=== PATIENT | male | born 1965 | race Caucasian/White ===

== ENCOUNTER 2018-01-04 09:40 | Observation (INO) | payer MEDICARE, MEDICAID ==
[2018-01-04 11:01] LABS: #Eosinphils 0.1 thou/uL (0.0-0.7); #Lymphocytes 1.3 thou/uL (1.20-3.40); #Monocytes 0.9 thou/uL (0.11-0.59); #Neutrophils 6.5 thou/uL (1.40-6.50); %Basophils 0.6 % (0.0-1.0); %Eosinophils 0.9 % (0.0-10.0); %Lymphocytes 15.2 % (21.0-51.0); %Neutrophils 73.4 % (42.0-75.0); Mean Corpuscular HGB CONC 34.2 g/dL (32.0-36.0); Mean Corpuscular Hemoglobin 36.2 pg (27.0-31.0); Mean Platelet Volume 6.7 fL (7.4-10.4); Platelet Count 294 thou/uL (130-400); RBC Distribution Width 11.7 % (11.5-14.5); Red Blood Cell (RBC) Count 3.88 mill/uL (4.70-6.10); White Blood Cell (WBC) Count 8.8 thou/uL (4.8-10.8)
[2018-01-04 11:23] LABS: MDiff Complete? YES; Macrocytosis SLIGHT = 6-15 cells (100X) (0-5/hpf); PLT Morphology Comment Appears Adequate
[2018-01-04 11:39] LABS: ALT (SGPT) 15 U/L (8-55); AST (SGOT) 16 U/L (5-34); Albumin 4.1 g/dL (3.5-5.0); Alkaline Phosphatase 87 U/L (40-150); BUN (Urea Nitrogen) 15 mg/dL (8.4-25.7); Bilirubin, Total 0.4 mg/dL (0.2-1.2); Calc. Creatinine Clearance 0 mL/min (70-130); Calcium 9.8 mg/dL (7.8-10.44); Carbon Dioxide 23 mmol/L (22-29); Chloride 104 mmol/L (98-107); Estimated GFR-MDRD Greater than 90; Globulin 3.3 g/dL (2.4-3.5); Glucose 98 mg/dL (70-105); Potassium 3.9 mmol/L (3.5-5.1); Protein, Total 7.4 g/dL (6.0-8.3); Sodium 137 mmol/L (136-145)
--- NOTE | 2018-01-04 12:39 | CT ---
CT ABDOMEN AND PELVIS WITH CONTRAST: HISTORY: Rectal pain. History of perirenal abscess. COMPARISON: CT abdomen and pelvis from 2014. FINDINGS: There are some mild atelectatic changes in the left lung base versus scarring, similar to 2014. No p ericardial effusion. Normal proximal small bowel rotation. The liver, pancreas, spleen, and gallbladder are all unremarka ble. Adrenal glands unremarkable. The aortoiliac contour is nonaneurysmal. There is a large perirectal abscess which measures 4.6 x 1. 5 x 2.5 cm, similar to the 2014 size. This is predominantly posterior. No dilated loops of large or small bowel. No significant abnormality. No acute osseous abnormality. IMPRESSION: 1. Similar to 2014 perirectal abscess with size as above. 2. Focal area of hyperenhancement hepatic segment 8 is likely a hemangioma and has not increased in size from 2014. POS: TPC
[2018-01-04 12:47] LABS: Anion Gap 15 mmol/L (10-20)
[2018-01-04] MEDS ORDERED: Piperacillin/Tazobactam 4.5 GM VIAL ONE (12:58)
[2018-01-04] MEDS ORDERED: HYDROcodone/Acetaminophen 5/325 mg Tablet ONE (13:13)
[2018-01-04] MEDS ORDERED: ISOVUE-370 76%-LOCM 1 ML ONE (13:30)
[2018-01-04] MEDS ORDERED: Ondansetron ODT 4 MG TAB PO PRN (15:22)
[2018-01-04] MEDS ORDERED: Enoxaparin Sodium 40 MG/0.4 ML SYRINGE SC SCH (15:22)
[2018-01-04] MEDS ORDERED: Acetaminophen 500 MG TAB PO PRN (15:54)
[2018-01-04] MEDS ORDERED: HYDROcodone/Acetaminophen 7.5/325 mg Tablet PO PRN (16:28)
[2018-01-04] MEDS ORDERED: Acetaminophen 325 MG TAB PO PRN (16:29)
[2018-01-04 16:32] VITALS: BMI 17.9
[2018-01-04 16:34] VITALS: TEMP 97.9
--- NOTE | 2018-01-04 16:39 | PDOC.FPRHP ---
- History of Present Illness Chief Complaint: perirectal abscess History of Present Illness: Patient is a 52YO gentleman w/ a PMH significant for HIV on atripla therapy, HTN, and a h/o recurrent hemorrhoids and perirectal abscesses who presents with CC of a perirectal abscess that started to form about 2 days ago. The patient states that he felt he was ahaving a flare-up with his hemorrhoids about 2 weeks ago and started using topical preparation H which helped the hemorrhoids subside; however, about 2 days ago he began to have pain in his perirectal area reminiscent of a peritrectal abscess. He says the pain is constant and fluctuates with position change and movement, namely walking. Denies any discharge, fever/chills, decreased PO intake, N/V, diarrhea, or BRBPR. States his last BM was yesterday morning and says it was very painful but he did not note any melena or hematochezia. Patient stated that the pain was tolerable yesterday with some topical OTC numbing cream but this morning he was barely able to walk 2/2 the pain. Says he tried taking a sitz bath to open of the abscess and encourage drainage but it did not help. After the bath did not help the patient therefore decided to come to the ED to be evaluated. ED Course: Patient was given 1 dose of PO [place] and IV Vanc and Zosyn. - Allergies/Adverse Reactions Allergies Allergy/AdvReac Type Severity Reaction Status Date / Time amphotericin B Allergy Verified 01/04/18 16:36 flucytosine Allergy Verified 01/04/18 16:36 venom-honey bee Allergy Verified 01/04/18 16:36 [bee venom (honey bee)] - Home Medications Medication Instructions Recorded Confirmed Type Cholecalciferol (Vitamin D3) 2,000 unit PO DAILY 08/14/13 01/04/18 History [Vitamin D3] Efavirenz/Emtricitab/Tenofovir 1 each PO DAILY 08/14/13 01/04/18 History [Atripla] Hydrochlorothiazide 25 mg PO QAM 08/14/13 01/04/18 History Potassium Chloride [K-Dur] 20 meq PO DAILY 08/14/13 01/04/18 History Atorvastatin Calcium 20 mg PO DAILY 11/10/13 01/04/18 History Acetaminophen [Tylenol Regular 650 mg PO Q6H PRN tab 01/04/18 Rx Strength] Amoxicillin/Potassium Clav 500 mg PO Q12HR 7 Days #14 tab 01/04/18 Rx [Augmentin] Docusate Sodium [Sof-Lax] 100 mg PO DAILY PRN #7 capsule 01/04/18 Rx - History PMHx: HIV, h/o recurrent hemorrhoids and perirectal abscesses, HTN, HLD, COPD PSHx: I&D of perianal abscess in August of 2103, Excision of perianal warts w/ seton placed through fistula in Nov, recurrent excision w/ tightening of seton through fistula in Dec FHx: Non-contributory Social: Has smoked about 2ppd since age 10 (~40 year history) up until 8 months ago when he cut back to 1.5 ppd. Drinks socially. No drug use. Lives at home with mom in [place], [place]. - Review of Systems General: denies: fever/chills, weight/appetite/sleep changes, fatigue Eyes: denies: vision changes ENT: denies: nasal congestion Respiratory: denies: cough, congestion, shortness of breath Cardiovascular: denies: chest pain Gastrointestinal: denies: nausea, vomiting, diarrhea, constipation, abdominal pain, GI bleeding Genitourinary: denies: incontinence, dysuria Skin: denies: itching Musculoskeletal: denies: swelling Neurological: denies: syncope, weakness Psychological: denies: anxiety, depression - Vital signs BP: 124/86 HR: 83 RR: 18 Tmax: 98.3F Pox: 98% on RA Wt: 60 kg - Physical Exam Constitutional: NAD, awake, alert and oriented, other (slightly underweight) HEENT: normocephalic and atraumatic, PERRLA, conjunctiva clear, no scleral icterus, grossly normal vision, grossly normal hearing, MMM, oropharynx clear Neck: supple, FROM, trachea midline Chest: no-tender to palpation Heart: RRR, normal S1/S2 Lungs: CTAB, no respiratory distress, good air movement, no rales/rhonchi, no wheezing Abdomen: soft, non-tender, bowel sounds present, no masses/distention Musculoskeletal: normal structure, normal tone, ROM grossly normal Neurological: no focal deficit, CN II-XII intact Skin: no rash/lesions, good turgor, capillary refill <2 seconds, no jaundice -Skin: external hemorrhoids diffusely w/ no evidence of acute or active thrombosis; perirectal area of induration @ ~10 o'clock about 4x2cm in size w/ no significant flutuance & minimal erythema noted; slightly TTP Heme/Lymphatic: no unusual bruising or bleeding Psychiatric: normal mood and affect, good judgment and insight, intact recent and remote memory FMR H&P: Results - Labs Result Diagrams: 01/04/18 10:42 01/04/18 10:42 Lab results: WBC 8.8 thou/uL (4.8-10.8) 01/04/18 10:42 Hgb 14.0 g/dL (14.0-18.0) 01/04/18 10:42 Hct 41.1 % (42.0-52.0) L 01/04/18 10:42 MCV 106.0 fL (78.0-98.0) H 01/04/18 10:42 Plt Count 294 thou/uL (130-400) 01/04/18 10:42 Neutrophils % 73.4 % (42.0-75.0) 01/04/18 10:42 Sodium 137 mmol/L (136-145) 01/04/18 10:42 Potassium 3.9 mmol/L (3.5-5.1) 01/04/18 10:42 Chloride 104 mmol/L (98-107) 01/04/18 10:42 Carbon Dioxide 23 mmol/L (22-29) 01/04/18 10:42 BUN 15 mg/dL (8.4-25.7) 01/04/18 10:42 Creatinine 0.78 mg/dL (0.6-1.3) 01/04/18 10:42 Glucose 98 mg/dL (70-105) 01/04/18 10:42 Lactic Acid 0.7 mmol/L (0.5-2.2) 01/04/18 10:42 Calcium 9.8 mg/dL (7.8-10.44) 01/04/18 10:42 Total Bilirubin 0.4 mg/dL (0.2-1.2) 01/04/18 10:42 AST 16 U/L (5-34) 01/04/18 10:42 ALT 15 U/L (8-55) 01/04/18 10:42 Alkaline Phosphatase 87 U/L (40-150) 01/04/18 10:42 Serum Total Protein 7.4 g/dL (6.0-8.3) 01/04/18 10:42 Albumin 4.1 g/dL (3.5-5.0) 01/04/18 10:42 - Radiology Interpretation Other Status: report reviewed by me Additional comment: CT Abd/pelvis significant for 4.6x1.5x2.5 cm perirectal abscess similar in size to abscess seen in 2014. FMR H&P: A/P - Problem List (1) Perirectal abscess Status: Acute Code(s): K61.1 - RECTAL ABSCESS (2) HIV (human immunodeficiency virus infection) Status: Chronic (3) HTN (hypertension) Status: Chronic Code(s): I10 - ESSENTIAL (PRIMARY) HYPERTENSION (4) HLD (hyperlipidemia) Status: Chronic Code(s): E78.5 - HYPERLIPIDEMIA, UNSPECIFIED (5) COPD (chronic obstructive pulmonary disease) Status: Chronic (6) History of HPV infection Status: Chronic Code(s): Z86.19 - PERSONAL HISTORY OF OTHER INFECTIOUS AND PARASITIC DISEASES (7) Hemorrhoids, external without complications Status: Chronic Code(s): K64.4 - RESIDUAL HEMORRHOIDAL SKIN TAGS - Plan 52YOM w/ PMH significant for HIV & recurrent perirectal abscesses who presents w / a CC of a perirectal abscess x 2 days. Perirectal abscess - General surgery, Dr. Puga consulted from the ED. Plans to de bedside I&D later today. Appreciate recs. - Will continue IV BS Abx w/ vanc & zosyn given patient's IC state w/ HIV. Can likely transition to PO Abx tomorrow. - Will continue home dose of norco as well as tylenol PO for pain control. Will have IV morphine available overnight due to plans for I&D today. - Will continue to follow WBC w/ AM CBC. - Will start a bowel regimen tomorrow to prevent BMs from being exceptionally painful. HIV - Per patient last CD4 count was 800. Follows w/ ID. - Will resume home Atripla therapy. HTN - Aware, well controlled. - Will resume home meds. HLD - Aware, will resume home meds. h/o hemorrhoids - Aware, no hemorrhoids actively thrombosed on exam. - Will resume preparation H PRN. COPD - Aware, patient uses a PRN inhaler. - Will order PRN albuterol. Tobacco use - Will encourage tobacco cessation. - Nicotine patch ordered. Dispo: Potentially d/c later tonight s/p I&D per General Surgery's recs. IVFs: None DVT PPX: Lovenox (held for I&D) FMR H&P: Upper Level - Pertinent history Sunbury Jacob is a 52 year old male with a history of HIV on ART and a history of multiple perirectal abscesses who presents to the ED with 2 week history of worsening perirectal pain. He denies any fever or chills. - Pertinent findings Vitals: AVSS Physical Exam: General: Alert and oriented x 3 Heart: Regular rate and rhythm Lungs: clear to auscultation bilaterally. Extremities: soft, non-tender. no edema. - Plan Date/Time: 01/04/18 1633 I, Kena Evans, have evaluated this patient and agree with findings/plan as outlined by validation intern resident. Pertinent changes/additions are listed here. Perirectal abscess. - Dr. Puga consulted from ED and plans to perform bedside I&D. - Will likely discharge after procedure. - Home with PO antibiotics. HIV - Pt states that his last CD4 count was 800 - on Atripla. Attending Addendum - Attending Addendum Date/Time: 01/04/18 3044 I personally evaluated the patient and discussed the management with Dr. Figueroa I agree with the History, Examination, Assessment and Plan documented above with any addition or exceptions noted below- 52 yo male with h/o HIV, HTN, hemorrhoids and preirectal abscess requiring I&D who presented c/o perianal pain x 2 days. Patient attempted sitz baths but pain increased today and so presented to ER. Denies any fever/chills, N/V. PMH/PSH/All/Meds reviewed and agree with residents documentation. Afebrile VSS Exam repeated by me and agree with residents findings. A/P: 1) Perirectal abscess- pTient started on Vanc and zosyn. Surgery consulted and plan for bedside I&D given patients lack of systemic symptoms with plan to d/c home after I&D.
[2018-01-04] MEDS ORDERED: Lidocaine 1% w/Epinephrine 1:100K 20 ML VIAL ONE (16:56)
[2018-01-04] MEDS ORDERED: Nicotine 14 MG PATCH TD SCH (17:00)
[2018-01-04 19:03] VITALS: BP 119/77
[2018-01-04] MEDS ORDERED: Piperacillin/Tazobactam 3.375 GM in Sodium Chloride 0.9% 100 ML IVPB SCH (20:00)
--- NOTE | 2018-01-04 21:18 | PDOC.GSCN ---
Surgery Consult: HPI - Consult details Date: 01/04/18 Time: 17:00 Reason for consult: other History of present illness: 01/04/18 21:14 Patient known to me from previous admissions. He had a fairly complex perirectal abscess with development of a fistula in ano which required surgical treatment about 3 years ago but healed completely from that. He has past medical history significant for HIV which is well-controlled on medication. About one week ago he started to develop recurrent perianal pain and swelling which he attributed to hemorrhoids and was treating topically, but a couple days ago the pain became severe. He came to the emergency room today and was found to have a large perirectal abscess which has not yet come to a head. He denies any fevers or chills but has been constipated since he is having so much pain in the anal area is difficult for him to empty his bowels. He has no other history of GI complaints except for occasional diarrhea and states that he had a colonoscopy at the time of his previous illness which didn't show any abnormalities. No personal or family history of inflammatory bowel disease or GI malignancy. 01/04/18 21:25 Surgery Consult: ROS - Review of Systems Constitutional: reports: as per HPI. denies: anorexia, chills, daytime sleepiness, excessive sweating, fatigue, fever(s), frequent falls, headache(s), increased appetite, lethargy, malaise, night sweats, stops breathing during sleep, snoring, weakness, weight gain, weight loss, other HEENT: denies: Head Aches, Visual Changes, Eye Pain, Ear Pain, Dysphasia, Sinus Congestion, Post Nasal Drip, Sore Throat, Other Cardiovascular: denies: regular rate and rhythm, irregular rate, no murmur, other Respiratory: reports: as per HPI. denies: chest congestion, cough, dyspnea, hemoptysis, dyspnea on exertion, wheezing, snoring, stridor, pain on inspiration , excessive phlegm production, change in phlegm color, pain with cough, other Gastrointestinal: reports: as per HPI, change in bowel habits, constipation, diarrhea. denies: abdominal pain, belching, bloating, coffee ground emesis, cramping, change in stool character, dyspepsia, dysphagia, excessive flatus, early satiety, fecal incontinence, heartburn, hematemesis, hematochezia, loose stool, melena, nausea, odynophagia, tenesmus, vomiting, other Musculoskeletal: reports: as per HPI. denies: abnormal gait, arthralgias, atrophy, back pain, defomity, joint swelling, loss of height, limited range of motion, muscle cramps, muscle weakness, myalgias, neck pain, numbness, radiating pain into limb, stiffness, tingling, other Integumentary: reports: as per HPI. denies: acne, alopecia, bleeding lesions, change in hair, changing lesions, change in nails, change in pigmentation, dry skin, erythema, furuncle, lesions, non-healing lesions, new lesions, photosensitivity, pruritus, rash, sores, skin pain, striae, skin ulcer, swelling , unusual bruising, wounds, jaundice, other Neurologial: reports: as per HPI. denies: abnormal gait, abnormal hearing, abnormal movements, abnormal speech, behavioral changes, confusion, convulsions , dizziness, disequilibrium, frequent falls, focal weakness, headache(s), lack of coordination, loss of vision, memory loss, numbness, paresthesias, restless legs, radicular pain, sensory deficit, syncope, tingling, tremor(s), vertigo, weakness, other visual disturbances, other Psychiatric: reports: as per HPI. denies: auditory halluncinations, anhedonia, anxiety, abnormal sleep pattern, behavioral changes, change in appetite, change in libido, confusion, difficulty concentrating, depression, hallucinations, homicidal ideation, hopelessness, irritability, mood swings, paranoia, panic attacks, suicidal ideation, visual hallucinations, tactile, other Surgery Consult: [facility] Past Medical History: HIV which is well-controlled, hypertension, hyperlipidemia Past Surgical History: I&D of perirectal abscess and surgery for anal fistula - Past Social History Smoking Status: Current every day smoker, Smokes 11 or more cig/day Drug Use History: none Living Situation: independent Surgery Consult: Exam - Vital signs Vital signs: Vital Signs - Most Recent Temp Pulse Resp BP Pulse Ox 97.9 F 96 16 119/77 98 01/04/18 19:02 01/04/18 19:02 01/04/18 19:02 01/04/18 19:02 01/04/18 19:02 - Physical Exam General: no distress Eye: normal ocular movement, PERRL ENT: no congestion, no hearing loss, normal mucosa, normal nares, normal pinna Neck: no bruits, no lymphadectomy, no masses, no darren distention, trachea midline Respiratory: normal expansion, normal respiratory effort, other (Occasional wheezes and crackles in the base) Abdomen: soft, tender Hernia: none Genitourinary (Male): normal penis with no external lesions, testicles non- tender, testicles present Rectum: other (Exquisitely tender with subtle swelling and induration of the posterior perianal area. No cal fluctuance) Hemorrhoids: mild Neurologic: normal coordination, normal sensation Musculoskeletal: normal gait, normal posture Psychiatric: memory intact, oriented to time, oriented to person, oriented to place, speech is normal Surgery Consult: Meds - Medications MAR Reviewed: Yes - Allergies Allergies/Adverse Reactions: Allergies Allergy/AdvReac Type Severity Reaction Status Date / Time amphotericin B Allergy Verified 01/04/18 16:36 flucytosine Allergy Verified 01/04/18 16:36 venom-honey bee Allergy Verified 01/04/18 16:36 [bee venom (honey bee)] Surgery Consult: Results - Labs Result Diagrams: 01/04/18 10:42 01/04/18 10:42 Lab results: Laboratory Results WBC 8.8 thou/uL (4.8-10.8) 01/04/18 10:42 RBC 3.88 mill/uL (4.70-6.10) L 01/04/18 10:42 Hgb 14.0 g/dL (14.0-18.0) 01/04/18 10:42 Hct 41.1 % (42.0-52.0) L 01/04/18 10:42 MCV 106.0 fL (78.0-98.0) H 01/04/18 10:42 MCH 36.2 pg (27.0-31.0) H 01/04/18 10:42 MCHC 34.2 g/dL (32.0-36.0) 01/04/18 10:42 RDW 11.7 % (11.5-14.5) 01/04/18 10:42 Plt Count 294 thou/uL (130-400) 01/04/18 10:42 MPV 6.7 fL (7.4-10.4) L 01/04/18 10:42 Neutrophils % 73.4 % (42.0-75.0) 01/04/18 10:42 Neutrophils % (Manual) Not Reportable 01/04/18 10:42 Lymphocytes % 15.2 % (21.0-51.0) L 01/04/18 10:42 Monocytes % 10.0 % (0.0-10.0) 01/04/18 10:42 Eosinophils % 0.9 % (0.0-10.0) 01/04/18 10:42 Basophils % 0.6 % (0.0-1.0) 01/04/18 10:42 Neutrophils # 6.5 thou/uL (1.40-6.50) 01/04/18 10:42 Lymphocytes # 1.3 thou/uL (1.20-3.40) 01/04/18 10:42 Monocytes # 0.9 thou/uL (0.11-0.59) H 01/04/18 10:42 Eosinophils # 0.1 thou/uL (0.0-0.7) 01/04/18 10:42 Basophils # 0.0 thou/uL (0.0-0.2) 01/04/18 10:42 Plt Morphology Comment Appears Adequate 01/04/18 10:42 Macrocytosis SLIGHT = 6-15 cells (100X) (0-5/hpf) 01/04/18 10:42 Sodium 137 mmol/L (136-145) 01/04/18 10:42 Potassium 3.9 mmol/L (3.5-5.1) 01/04/18 10:42 Chloride 104 mmol/L (98-107) 01/04/18 10:42 Carbon Dioxide 23 mmol/L (22-29) 01/04/18 10:42 Anion Gap 15 mmol/L (10-20) 01/04/18 10:42 BUN 15 mg/dL (8.4-25.7) 01/04/18 10:42 Creatinine 0.78 mg/dL (0.6-1.3) 01/04/18 10:42 Estimated GFR (MDRD) Greater than 90 01/04/18 10:42 Glucose 98 mg/dL (70-105) 01/04/18 10:42 Lactic Acid 0.7 mmol/L (0.5-2.2) 01/04/18 10:42 Calcium 9.8 mg/dL (7.8-10.44) 01/04/18 10:42 Total Bilirubin 0.4 mg/dL (0.2-1.2) 01/04/18 10:42 AST 16 U/L (5-34) 01/04/18 10:42 ALT 15 U/L (8-55) 01/04/18 10:42 Alkaline Phosphatase 87 U/L (40-150) 01/04/18 10:42 Serum Total Protein 7.4 g/dL (6.0-8.3) 01/04/18 10:42 Albumin 4.1 g/dL (3.5-5.0) 01/04/18 10:42 Globulin 3.3 g/dL (2.4-3.5) 01/04/18 10:42 Albumin/Globulin Ratio 1.2 g/dL (1.2-2.2) 01/04/18 10:42 Blood Type A POSITIVE 01/04/18 10:42 Antibody Screen NEGATIVE 01/04/18 10:42 - Radiology Interpretation Other Status: image reviewed by me (CT shows large posterior perirectal abscess), report reviewed by me Surgery Consult: A/P - Problem (1) Perirectal abscess Code(s): K61.1 - RECTAL ABSCESS Status: Acute - Plan Plan: Patient has an acute perirectal abscess which is very symptomatic. I recommended I&D at the bedside and he was agreeable to this plan. This was performed as documented with drainage of a large amount of pus. Cultures were sent. Patient tolerated the procedure well with immediate relief of his perianal pain. He should perform sitz baths or showers twice a day and after each bowel movement and return to my clinic in one week's time for drain removal. He is to contact me immediately. Develops worsening pain swelling redness fevers or chills.
--- NOTE | 2018-01-05 01:44 | OP ---
DATE OF PROCEDURE: 01/04/2018 PROCEDURE: Incision and drainage of perirectal abscess. PREOPERATIVE DIAGNOSIS: Perirectal abscess. POSTOPERATIVE DIAGNOSIS: Perirectal abscess. HISTORY: Mr. James is a 52-year-old man with a history of perirectal abscesses who presents with recurrence in the posterior position and incision and drainage was recommended. PROCEDURE IN DETAIL: After informed consent was obtained and appropriate antibiotics continued, the patient was placed in the left lateral decubitus position and the perianal area was prepped and drape d in standard sterile fashion. Local anesthesia was infused to the point of greatest tenderness post eriorly and an incision made. Dissection was carried down to the very-thick abscess capsule. The ab scess was aspirated to confirm that the incision was correctly positioned and pus was sent for Gram-s tain and culture. The abscess capsule was then sharply opened and a very large amount of pus obtaine d. This was completely evacuated. Quarter-inch [place] drain placed into the abscess cavity, which was about 4.5 cm deep. This was secured to the skin with nylon sutures and the cavity was irrigated with saline. The patient had immediate relief of the perianal pain and pressure after drainage of th e abscess. Gauze dressings were placed. Estimated blood loss was minimal. There were no complicati ons. SPECIMEN: Pus for Gram stain and culture.
[2018-01-05] MEDS ORDERED: Vancomycin HCl 1 GM in Premix Bag 1 BAG IVPB SCH (02:00)
[2018-01-05] MEDS ORDERED: Hydrochlorothiazide 25 MG TAB PO SCH (09:00)
[2018-01-05] MEDS ORDERED: Atorvastatin Calcium 20 MG TAB PO SCH (09:00)
[2018-01-05] MEDS ORDERED: Potassium Chloride 20 MEQ TAB PO SCH (09:00)
[2018-01-05] MEDS ORDERED: Efavirenz/Emtricitab/Tenofovir [Atripla] PO SCH (09:00)
--- NOTE | 2018-01-09 00:29 | DIS-2 ---
DATE OF ADMISSION: 01/04/2018 DATE OF DISCHARGE: 01/04/2018 RESIDENT: Zonia Figueroa M.D. ADMITTING ATTENDING: Symone Spears M.D. DISCHARGE ATTENDING: Symone Spears M.D. CONSULTATION: General Surgery, Dr. Karla Puga. PROCEDURES: 1. Abdomen and pelvis CT significant for a focal area of hyperenhancement, hepatic segment is likely hemangioma as well as a large perirectal abscess measuring 4.6 x 1.5 x 2.5 cm. 2. I&D of perirectal abscess. PRIMARY DIAGNOSES: 1. Perirectal abscess. 2. External hemorrhoids without complications. SECONDARY DIAGNOSES: 1. Human immunodeficiency virus. 2. Hypertension. 3. Hyperlipidemia. 4. Chronic obstructive pulmonary disease. 5. History of HPV infection. DISCHARGE MEDICATIONS: 1. Cholecalciferol 2000 units p.o. daily. 2. Potassium chloride 20 mEq p.o. daily. 3. HCTZ 25 mg p.o. q.a.m. 4. Atripla 1 tablet p.o. daily. 5. Atorvastatin 20 mg p.o. daily. 6. Acetaminophen 650 mg p.o. every 6 hours p.r.n. for pain. 7. Augmentin 500 mg p.o. every 12 hours for 7 days. 8. Docusate sodium 100 mg p.o. daily p.r.n. for 7 days. DISCONTINUED MEDICATIONS: None. HOSPITAL COURSE: Patient is a 52-year-old gentleman with a past medical history significant for HIV and multiple perirectal abscesses who presented to the Emergency Department with a chief complaint of a progressively worsening painful perirectal abscess that developed approximately 2 days prior to presentation. Please see the history and physical for documentation of management in the emergency department. The patient was noted to be hemodynamically stable with no signs of systemic infection and General Surgery was therefore consulted due to the significant size of the abscess with no signs that it would open without surgical intervention. The patient was therefore admitted to the floor for approximately [address] Karla Puga with General Surgery came and evaluated the patient on the floor and performed a bedside I&D of the patient's perirectal abscess. The patient tolerated the procedure well with no complications. Thus, following the procedure, the patient was cleared to be discharged home on p.o. antibiotics for 1 week with instructions to follow up with Dr. Puga in approximately 1 week for a postop wound check. DISPOSITION: Stable. DISCHARGE INSTRUCTIONS: 1. Location: Home. 2. Diet: Regular diet. 3. Activity: As tolerated. 4. Followup: The patient was instructed to follow up with General Surgery, Dr. Karla Puga as well as his primary care physician at [facility] within 7 days of discharge. ANITA
== END 2018-01-04 19:45 | disposition home or self-care (01) ==
LOC: ERS 09:40 → T4-A 14:17
PROVIDERS: ADMIT Student in an Organized Health Care Education/Training Program; ATTEND Student in an Organized Health Care Education/Training Program
PROC: 0D9P3ZZ Drainage of Rectum, Percutaneous Approach (ICD-10-PCS; principal; 2018-01-04)
DX: K61.1 Rectal abscess (principal); K64.4 Residual hemorrhoidal skin tags; I10 Essential (primary) hypertension; E78.5 Hyperlipidemia, unspecified; J44.9 Chronic obstructive pulmonary disease, unspecified; Z21 Asymptomatic human immunodeficiency virus [HIV] infection status; Z79.899 Other long term (current) drug therapy; Z88.8 Allergy status to other drugs, medicaments and biological substances
CPT/HCPCS: 36415; 46040; 74177; 80053; 83605; 85025; 86850; 86900; 86901; 87040; 87070; 87076; 87205; 96365; 96367; 96375; 99406; J2001; J2270; J2543; J3370